=== PATIENT | female | born 1945 | race Two or more races ===

== ENCOUNTER 2023-02-25 11:40 | Inpatient (IN) | payer OTHER ==
[~2023-02-25] VITALS: Ht 167.6 cm; Wt 73.0 kg
[2023-02-26] MEDS ORDERED: METFORMIN HCL500 M3 PO (14:08)
[2023-02-26] MEDS ORDERED: JARDIANCE25 MG PO (14:08)
[2023-02-26] MEDS ORDERED: MOUNJARO15 MG/0.5 (14:09)
[2023-02-26] MEDS ORDERED: CLONAZEPAM2 M1 PO (14:09)
[2023-02-26] MEDS ORDERED: LUNESTA2 MG PO (14:09)
[2023-02-26] MEDS ORDERED: ALTACE10 MG PO (14:09)
[2023-02-26] MEDS ORDERED: TOPROL XL100 M1 PO (14:10)
[2023-02-26] MEDS ORDERED: ZETIA10 MG PO (14:10)
[2023-03-03] MEDS ORDERED: TOBRAMYCIN-DEXAM5 ML (08:00)
[2023-03-03] MEDS ORDERED: ACARBOSE50 MG (08:00)
[2023-03-03] MEDS ORDERED: FOLIC ACID1 MG (08:00)
[2023-03-03] MEDS ORDERED: AZELASTIN-FLUTI23 GM (08:00)
[2023-03-03] MEDS ORDERED: GABAPENTIN800 M1 (08:03)
[2023-03-04] MEDS ORDERED: DUI500 PO (08:06)
[2023-03-04] MEDS ORDERED: PERCOCET 5-3251 EACH PO (08:06)
[2023-03-04] MEDS ORDERED: ELIQUIS2.5 MG PO (08:06)
== END 2023-03-05 17:50 | DRG 470 ==
LOC: SURG 03-03 05:40 → O/R 03-03 05:40 → SURH 03-03 12:00 → SURG 03-03 13:37
PROVIDERS: ADMIT Orthopaedic Surgery; ATTEND Orthopaedic Surgery
PROC: 0MNN0ZZ Release Right Knee Bursa and Ligament, Open Approach (ICD-10-PCS; 2023-03-03)
PROC: 0SRC0J9 Replacement of Right Knee Joint with Synthetic Substitute, Cemented, Open Approach (ICD-10-PCS; principal; 2023-03-03 12:00)
DX: M17.11 Unilateral primary osteoarthritis, right knee (principal); D62 Acute posthemorrhagic anemia; I11.9 Hypertensive heart disease without heart failure